=== PATIENT | female | born 1985 | race Caucasian/White ===

== ENCOUNTER 2020-06-15 11:46 | Emergency (ER) | payer BC, SELFPAY ==
[2020-06-15 11:57] VITALS: BP 199/124; PULSE 97; RESP 18; TEMP 36.6; O2SAT 98; BMI 50.6
--- NOTE | 2020-06-15 12:23 | ED_ITS ---
HPI - Allergic Reaction General Chief complaint: Allergic Reaction Stated complaint: allergic reaction Time Seen by Provider: 06/15/20 12:07 Source: patient Mode of arrival: ambulatory Limitations: no limitations History of Present Illness HPI narrative: 35-year-old female here with general body itching, cough, throat itching, facial itching x2 days. The patient tells me she started taking Macrobid on Friday for a UTI. She has never taken this before. She denies any rash, vomiting, diarrhea, abdominal cramps, shortness of breath, difficulty swallowing. MD complaint: allergic reaction Onset (ago): day(s) Exposure: medication Symptoms: itching Severity: mild Treatment prior to arrival: none Previous Allergic Reaction History: none Related Data Previous Rx's Medication Instructions Recorded prednisone 40 mg PO DAILY #8 tab 06/15/20 sulfamethoxazole-trimethoprim 1 tab PO Q12H #14 tab 06/15/20 [Bactrim DS] Allergies Allergy/AdvReac Type Severity Reaction Status Date / Time Fish Containing Products Allergy Intermediate SWELLING Unverified 02/17/20 18:02 AND SHORTNESS OF BREATH Penicillins [PENICILLINS] Allergy Intermediate VOMITING Unverified 02/17/20 18:02 shellfish derived Allergy Intermediate SWELLING Unverified 02/17/20 18:02 [SHELLFISH DERIVED] AND SHORTNESS OF BREATH cat dander [CATS] Allergy Unknown UNKNOWN Unverified 02/17/20 18:02 dog dander [DOGS] Allergy Unknown UNKNOWN Unverified 02/17/20 18:02 Rabbit [RABBITS] Allergy Unknown UNKNOWN Unverified 02/17/20 18:02 Review of Systems Review of Systems: Yes all other systems are reviewed and are negative Constitutional: Constitutional: Reports no additional constitutional complaints, Denies body ache(s), Denies chills, Denies fever(s), Denies headache(s) and Denies weakness Eyes: Eyes: Reports no additional eye complaints and Denies change in vision ENT: Reports system reviewed and no additional complaints, except as documented, Denies dizziness, Denies headache(s), Denies nasal congestion, Denies nasal discharge and Denies neck pain Cardiovascular: Cardiovascular: Reports no additional cardiovascular complaints, Denies chest pain, Denies leg edema and Denies dyspnea Respiratory: Respiratory: Reports no additional respiratory complaints, Denies cough and Denies dyspnea Gastrointestinal: Gastrointestinal: Reports no additional gastrointestinal complaints, Denies abdominal pain, Denies diarrhea, Denies nausea and Denies vomiting Genitourinary: Genitourinary: Reports no additional female genitourinary complaints and Denies urinary incontinence Musculoskeletal: Musculoskeletal: Reports no additional musculoskeletal complaints, Denies back pain, Denies arthralgias, Denies joint swelling, Denies neck pain, Denies numbness and Denies tingling Integumentary/Breasts: Skin/Breast: Reports system reviewed and no additional complaints, except as docu and Denies rash Comments: Itching Neurologic: Reports system reviewed and no additional complaints, except as documented, Denies Abnormal speech present, Denies dizziness, Denies headache(s), Denies numbness, Denies tingling and Denies weakness PMFSH Past Medical History Attestation statement: The following information was validated with the patient. Source: old records reviewed and nursing notes reviewed Medical History Asthma GERD (gastroesophageal reflux disease) HTN (hypertension) Muscle spasm Social History Social History Smoking Status: Never smoker Use of substances other than those prescribed or required for medical reasons: No Advance Directives: No Advance Directives Information Provided: No Physical Exam Vital Signs: Vital Signs: Last Vital Signs Temp 98.8 F 06/15/20 15:01 Pulse 82 06/15/20 15:01 Resp 16 06/15/20 15:01 BP 151/98 H 06/15/20 15:01 Pulse Ox 96 06/15/20 15:01 Body Mass Index 50.6 Const: General: cooperative, healthy appearing, comfortable and no acute distress Orientation/consciousness: patient oriented x3 Limitations: no limitations HENMT: Head: Yes normal to inspection Ears: hearing grossly normal bilaterally General nose exam: Normal external nose present Face and sinus: Yes normal facial exam Mouth: Normal oral and palatal mucosa present Throat: Yes posterior oropharynx normal, Yes tonsils normal and Yes uvula midline Eyes: General: appearance normal, both eyes and all related structures Pupils: Equal, round and reactive pupils present Neck: Neck: Yes normal visual inspection Chest: Chest palpation & inspection: normal inspection of the chest Resp: Effort & Inspection: normal respiratory effort Auscultation: clear to auscultation bilaterally Cardio: Rate: regular rate Rhythm: regular rhythm Peripheral pulses: Peripheral pulses 2+ throughout GI: Inspection: Yes normal to inspection Palpation (GI): Soft to palpation and nontender Auscultation: normal bowel sounds Back/Spine/Pelvis: Thoracic/Lumbar Spine: thoracic and lumbar spine normal to inspection Skin: General skin exam: no rashes or lesions noted Neuro: General: patient oriented x3, no focal motor deficits and normal sensation to monofilament Cranial nerves: Yes Equal, round and reactive pupils present Cognition (Neuro): normal cognition Speech: No Abnormal speech present Gait exam (Neuro): Normal gait present Motor exam (neuro): 5/5 motor strength present throughout Extrem: General: Yes normal to inspection Course Course Course Narrative: 35-year-old female here with generalized itching, facial itching, throat itching status post several days. Currently taking Macrobid for an UTI which is new. Arrival the patient has no angioedema or airway involvement. Clear lung sounds. Stable vital signs. Will place PIV and give steroids, Pepcid, Benadryl and reassess 1500-Patient feels much improved. Recommended stop taking Macrobid. Patient has taken Bactrim before with no problems. Prescribed this. Stable vital signs. Feeling better. Reviewed worrisome signs and symptoms and when to return to the emergency department. Comfortable discharge home. Discharge Plan Discharge Clinical Impression: Allergic reaction Qualifiers: Encounter type: initial encounter Qualified Code(s): T78.40XA - Allergy, uns pecified, initial encounter Patient Disposition: Home, Self-Care Instructions: General Allergic Reaction (ED) Additional Instructions: Start prednisone tomorrow Start antibiotic as soon as possible Prescriptions: New sulfamethoxazole-trimethoprim [Bactrim DS] 800-160 mg tablet 1 tab PO Q12H Qty: 14 RF: 0 prednisone 20 mg tablet 40 mg PO DAILY Qty: 8 RF: 0 Referrals: Damari Castañeda MD [Primary Care Provider] - 2 days Interventions: ED Discharge Assessment Last Done: 06/15/20 15:07 Discharge Date/Time: 06/15/20 15:07
[2020-06-15] MEDS: 0.9 % Sodium Chloride 1,000 ML 999 ML IV (12:58)
[2020-06-15] MEDS: Famotidine/PF 20 MG/2 ML VIAL IVPUSH (12:59)
[2020-06-15] MEDS: diphenhydrAMINE HCL 50 MG/ML VIAL 25 MG IVPUSH (12:59)
[2020-06-15] MEDS: methylPREDNISolone Sod Succ/PF 125 MG/2 ML VIAL IVPUSH (12:59)
[2020-06-15 15:01] VITALS: BP 151/98; PULSE 82; RESP 16; TEMP 37.1; O2SAT 96
== END 2020-06-15 15:07 | disposition home or self-care (01) ==
PROVIDERS: Emergency Provider Emergency Medicine Emergency Medical Services; PCP Internal Medicine
DX: L29.9 Pruritus, unspecified (principal); T37.8X5A Adverse effect of other specified systemic anti-infectives and antiparasitics, initial encounter; L23.9 Allergic contact dermatitis, unspecified cause; M79.10 Myalgia, unspecified site; R05 Cough; Y92.009 Unspecified place in unspecified non-institutional (private) residence as the place of occurrence of the external cause; Z20.822 Contact with and (suspected) exposure to COVID-19; Z79.2 Long term (current) use of antibiotics; Z79.899 Other long term (current) drug therapy
CPT/HCPCS: 96361; 96374; 96375; 99284; J1200; J2930

== ENCOUNTER 2020-09-14 12:26 | Emergency (ER) | payer BC, SELFPAY ==
--- NOTE | ~2020-09-14 | CT_ITS ---
EXAMINATION: CT ABDOMEN AND PELVIS WITHOUT CONTRAST CLINICAL INFORMATION: Reason for Exam Flank pain . COMPARISON: No pertinent prior studies are available for comparison. TECHNIQUE: Multidetector volumetric imaging was performed from the superior aspect of the liver through the pubic symphysis without contrast per renal stone protocol. Sagittal and coronal reformatted images were obtained on the technologist workstation. This CT examination was performed using dose optimization techniques as appropriate, variously including the following: *Automated exposure control *Adjustment of mA and/or kV according to patient size (this includes techniques or standardized protocols for targeted exams where dose is matched to indication/reason for exam; i.e. extremities or head) *Use of iterative reconstruction technique DLP: 1384 mGy-cm. FINDINGS: LUNG BASES: The visualized lung bases are unremarkable. LIVER, GALLBLADDER, BILIARY TREE: The non-contrast liver is normal in size, shape, and attenuation. No focal hepatic lesion or biliary ductal dilatation is present. The gallbladder is unremarkable with no evidence of radiopaque gallstones, gallbladder wall thickening, or obvious pericholecystic inflammatory changes. PANCREAS: Unremarkable. SPLEEN: Unremarkable. ADRENAL GLANDS: Unremarkable. KIDNEYS AND URETERS: The kidneys are normal in size, shape, and attenuation. No hydronephrosis, hydroureter, or calculi seen. No perinephric stranding. BLADDER: Unremarkable. GASTROINTESTINAL TRACT: The small and large bowel are unremarkable. The appendix is unremarkable. ABDOMINAL WALL: Mild diffuse anasarca LYMPHOVASCULAR STRUCTURES: Vascular calcification within the aorta iliac system. No bulky adenopathy.. PELVIC VISCERA: Unremarkable. OSSEUS STRUCTURES: Chronic bilateral pars defects at L5 with grade 1 anterolisthesis of L5 on S1 with secondary degenerative changes including loss of disc height, osteophyte formation, and endplate sclerosis. Prominent Tarlov cysts incidentally seen in the sacrum CT/CT abdomen pelvis wo con IMPRESSION: I do not appreciate any acute intra-abdominal process. Chronic appearing changes as described above..
[2020-09-14 13:04] VITALS: BP 192/123; PULSE 100; RESP 18; TEMP 536.9; TEMP 998.4; O2SAT 99; BMI 57.3
[2020-09-14 14:07] LABS: Glucose Urine UA NEG (NEG); Leukocyte Esterase Urine 1+ (NEG); Nitrite Urine NEG (NEG); UACC Culture Trigger YES; Urine Blood 3+ (NEG); Urine Ketones NEG (NEG); Urine Protein 2+ MG/DL (NEG-TRACE)
[2020-09-14 14:15] LABS: Appearance Urine HAZY; Color Urine PINK
[2020-09-14 14:36] LABS: Squamous Epithelial Cell Urine 1+ /LPF
[2020-09-14 14:37] LABS: Bacteria Urine TRACE /LPF; Mucus Urine TRACE /LPF
[2020-09-14 15:38] LABS: UPreg QC Valid YES; Urine Pregnancy NEGATIVE (NEGATIVE)
[2020-09-14] MEDS: Morphine Sulfate 4 MG/ML CARTRIDGE IVPUSH (15:43)
[2020-09-14] MEDS: ondansetron HCL 4 MG/2 ML VIAL IVPUSH (15:43)
[2020-09-14 15:46] LABS: MANUAL DIFF FLAG NO
[2020-09-14 15:47] VITALS: BP 212/128; PULSE 101; RESP 18; O2SAT 97
[2020-09-14 15:49] LABS: Basophils Absolute Auto 0.1 X10*3/uL (0.0-0.2); Basophils Percent Auto 0.5 % (0-2); Eosinophils Absolute Auto 0.3 X10*3/uL (0.0-0.4); Eosinophils Percent Auto 2.5 % (0-4); Hematocrit 41.7 % (37-47); Hemoglobin 13.7 g/dl (12.0-16.0); Imm Gran Abs Auto 0.04 X10*3/uL (0.00-0.03); Imm Gran Pct Auto 0.4 % (0.0-0.4); Lymphocytes Absolute Auto 1.8 X10*3/uL (1.2-4.9); Lymphocytes Percent Auto 17.6 % (20-40); Mean Corpuscular HGB Conc 32.9 g/dl (31.0-35.0); Mean Corpuscular Hemoglobin 27.5 pg (27.0-33.0); Mean Corpuscular Volume 83.6 fL (80-98); Mean Platelet Volume 9.4 fL (9.4-12.3); Monocytes Absolute Auto 0.8 X10*3/uL (0.1-1.2); Monocytes Percent Auto 8.1 % (2-11); Neutrophils Absolute Auto 7.1 X10*3/uL (2.0-8.3); Neutrophils Percent Auto 70.9 % (45-73); Platelet Count 346 X10*3/uL (160-400); Red Blood Count 4.99 X10*6/uL (4.20-5.50); Red Cell Distribution Width 14.4 % (11.0-16.0); White Blood Count 10.1 X10*3/uL (4.8-10.8)
--- NOTE | 2020-09-14 16:22 | ED.ABDPAIN ---
HPI - Abdominal Pain General Chief Complaint: Back Pain/Injury Stated Complaint: kidney pain Time Seen by Provider: 09/14/20 15:18 Source: patient Mode of arrival: ambulatory Limitations: no limitations History of Present Illness HPI narrative: 35-year-old female with history of hypertension, DJD of the back, obesity along with other history as noted below presenting with complaint of states 2 days of burning-like discomfort with urination but for the past several weeks has noted some blood when she voids and became burning-like today. 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 She otherwise denies any lower abdominal pain, nausea, vomiting, diarrhea, fever. MD elicited complaint: flank pain Pertinent past history: past UTI Onset (ago): day(s) Pain Consistency: intermittent Location: other (Lower back) Severity: moderate Quality: aching Radiation: none Migration to: no migration Exacerbating factors: movement Relieving factors: nothing Associated symptoms: denies other symptoms Related Data Previous Rx's Medication Instructions Recorded prednisone 40 mg PO DAILY #8 tab 06/15/20 sulfamethoxazole-trimethoprim 1 tab PO Q12H #14 tab 06/15/20 [Bactrim DS] cefdinir 300 mg PO BID #14 cap 09/14/20 naproxen 500 mg PO BID PRN #14 tab 09/14/20 Allergies Allergy/AdvReac Type Severity Reaction Status Date / Time Fish Containing Products Allergy Intermediate SWELLING Unverified 02/17/20 18:02 AND SHORTNESS OF BREATH Penicillins [PENICILLINS] Allergy Intermediate VOMITING Verified 09/14/20 13:03 shellfish derived Allergy Intermediate SWELLING Verified 09/14/20 13:03 [SHELLFISH DERIVED] AND SHORTNESS OF BREATH cat dander [CATS] Allergy Unknown UNKNOWN Verified 09/14/20 13:03 dog dander [DOGS] Allergy Unknown UNKNOWN Verified 09/14/20 13:03 Rabbit [RABBITS] Allergy Unknown UNKNOWN Verified 09/14/20 13:03 nitrofurantoin Allergy Hives Verified 09/14/20 13:03 [From Macrobid] Review of Systems Review of Systems Constitutional: No Weight loss, No Fever, No Chills, No Night Sweats, No Fatigue, No Malaise ENT/Mouth: No Hearing loss, No Ear Pain, No Nasal Congestion, No Sinus Pain, No Hoarseness, No sore throat, No Rhinorrhea, No Swallowing Difficulty Eyes: No Eye Pain, No Swelling, No Redness, No Foreign Body, No Discharge, No Vision Changes Cardiovascular: No Chest Pain, No SOB, No Dyspnea on Exertion, No Orthopnea, No Edema, No Palpitations Respiratory: No Cough, No Sputum, No Wheezing, No Dyspnea Gastrointestinal: No Nausea, No Vomiting, No Diarrhea, No Constipation, No abdominal Pain, No Hematochezia, No Melena Genitourinary: no irregular bleeding, + Dysuria, No Urinary Frequency, + Hematuria, No Urinary Incontinence, No Urgency, No Urinary Flow Changes, No Hesitancy Musculoskeletal: No joint pain, No Myalgias, No Joint Swelling, back pain Skin: No Skin Lesions, No rash Neuro: No Weakness, No Numbness, No Paresthesias, No Loss of Consciousness, No Dizziness, No Headache Psych: No Social Issues Heme/Lymph: No Bruising, No Bleeding,No Lymphadenopathy Endocrine: No Polyuria, No Polydipsia, No Temperature Intolerance Yes all other systems are reviewed and are negative Physical Exam Vital Signs: Vital Signs: Last Vital Signs Temp 998.4 F H 09/14/20 13:04 Pulse 92 09/14/20 17:29 Resp 18 09/14/20 17:29 BP 162/95 H 09/14/20 17:29 Pulse Ox 97 09/14/20 17:29 Body Mass Index 57.3 Reviewed Temperature documented as above however this is done in error the actual temperature is 98.4 degrees. Resp: Auscultation: clear to auscultation bilaterally Cardio: Rhythm: regular rhythm Heart sounds: S1 normal heart sound present and S2 normal heart sound present GI: Palpation (GI): Soft to palpation Course Reevaluation(s) Reevaluation #1: Noticeably hypertensive at baseline though in pain she was post be on antihypertensive she did not hop picker last week she picked up today did not take. States she has history of attention will normally run slightly higher. She otherwise denies any headache or chest pain. Labs show urine that is infected otherwise no leukocytosis, renal function intact. Abdominal pelvis CT without acute pathology. Exam does not exhibit any findings to suggest pyelonephritis. Will discharge home with Ceftin and culture the urine. Educated on the importance of better blood pressure management for greater than 15 minutes with counseling including importance of dietary regimen, balance sleep and desirable BMI. She will keep a log of her blood pressure and follow-up with her primary care closely. Stable for discharge. MDM - Abdominal Pain Medical Records Attestation: I reviewed the patient's medical records. Lab Data Attestation: I reviewed the patient's lab results. Result diagrams: 09/14/20 15:38 09/14/20 15:38 Labs: Lab Results 09/14/20 09/14/20 09/14/20 Range/Units 13:43 13:43 15:38 WBC 10.1 (4.8-10.8) X10*3/uL RBC 4.99 (4.20-5.50) X10*6/uL Hgb 13.7 (12.0-16.0) g/dl Hct 41.7 (37-47) % MCV 83.6 (80-98) fL MCH 27.5 (27.0-33.0) pg MCHC 32.9 (31.0-35.0) g/dl RDW 14.4 (11.0-16.0) % Plt Count 346 (160-400) X10*3/uL MPV 9.4 (9.4-12.3) fL Immature Gran % (Auto) 0.4 (0.0-0.4) % Neut % (Auto) 70.9 (45-73) % Lymph % (Auto) 17.6 L (20-40) % [place]oula % (Auto) 8.1 (2-11) % Eos % (Auto) 2.5 (0-4) % Baso % (Auto) 0.5 (0-2) % Lymph # (Auto) 1.8 (1.2-4.9) X10*3/uL [place] # (Auto) 0.8 (0.1-1.2) X10*3/uL Eos # (Auto) 0.3 (0.0-0.4) X10*3/uL Baso # (Auto) 0.1 (0.0-0.2) X10*3/uL Abs Immat Gran (auto) 0.04 H (0.00-0.03) X10*3/uL Absolute Neuts (auto) 7.1 (2.0-8.3) X10*3/uL Absolute Nucleated RBC 0.000 (0.0-0.012) X10*3/uL Nucleated RBC % (auto) 0.0 (0.0-0.2) /100WBC Sodium (135-145) mmol/L Potassium (3.3-5.1) mmol/L Chloride (96-108) mmol/L Carbon Dioxide (22-29) mmol/L Anion Gap (12-20) BUN (9-16) mg/dL Creatinine (0.5-1.4) mg/dL Estim Creat Clear Calc Estimated GFR Random Glucose (60-115) mg/dL Calcium (8.4-10.2) mg/dL Total Bilirubin (0.0-1.0) mg/dL AST (5-31) U/L ALT (0-31) U/L Alkaline Phosphatase (39-117) U/L Total Protein (6.5-8.0) g/dL Albumin (3.5-5.0) g/dL Urine Color PINK Urine Appearance HAZY Urine pH 7.0 (5.0-8.0) Ur Specific Tillson 1.010 (1.005-1.025) Urine Protein 2+ H (NEG-TRACE) MG/DL Urine Glucose (UA) NEG (NEG) MG/DL Urine Ketones NEG (NEG) MG/DL Urine Blood 3+ H (NEG) Urine Nitrite NEG (NEG) Ur Leukocyte Esterase 1+ H (NEG) Urine RBC 15-29 H (0) /HPF Urine WBC 1-4 (0-4) /HPF Ur Squamous Epith Cells 1+ /LPF Urine Bacteria TRACE /LPF Urine Mucus TRACE /LPF Urine Test NEGATIVE (NEGATIVE) 09/14/20 Range/Units 15:38 WBC (4.8-10.8) X10*3/uL RBC (4.20-5.50) X10*6/uL Hgb (12.0-16.0) g/dl Hct (37-47) % MCV (80-98) fL MCH (27.0-33.0) pg MCHC (31.0-35.0) g/dl RDW (11.0-16.0) % Plt Count (160-400) X10*3/uL MPV (9.4-12.3) fL Immature Gran % (Auto) (0.0-0.4) % Neut % (Auto) (45-73) % Lymph % (Auto) (20-40) % [place]oul[place] % (Auto) (2-11) % Eos % (Auto) (0-4) % Baso % (Auto) (0-2) % Lymph # (Auto) (1.2-4.9) X10*3/uL [place] # (Auto) (0.1-1.2) X10*3/uL Eos # (Auto) (0.0-0.4) X10*3/uL Baso # (Auto) (0.0-0.2) X10*3/uL Abs Immat Gran (auto) (0.00-0.03) X10*3/uL Absolute Neuts (auto) (2.0-8.3) X10*3/uL Absolute Nucleated RBC (0.0-0.012) X10*3/uL Nucleated RBC % (auto) (0.0-0.2) /100WBC Sodium 138 (135-145) mmol/L Potassium 3.5 (3.3-5.1) mmol/L Chloride 99 (96-108) mmol/L Carbon Dioxide 27 (22-29) mmol/L Anion Gap 16 (12-20) BUN 11 (9-16) mg/dL Creatinine 0.78 (0.5-1.4) mg/dL Estim Creat Clear Calc 148.4 Estimated GFR > 60 Random Glucose 115 (60-115) mg/dL Calcium 9.1 (8.4-10.2) mg/dL Total Bilirubin 0.6 (0.0-1.0) mg/dL AST 25 (5-31) U/L ALT 35 H (0-31) U/L Alkaline Phosphatase 73 (39-117) U/L Total Protein 8.1 H (6.5-8.0) g/dL Albumin 4.4 (3.5-5.0) g/dL Urine Color Urine Appearance Urine pH (5.0-8.0) Ur Specific Tillson (1.005-1.025) Urine Protein (NEG-TRACE) MG/DL Urine Glucose (UA) (NEG) MG/DL Urine Ketones (NEG) MG/DL Urine Blood (NEG) Urine Nitrite (NEG) Ur Leukocyte Esterase (NEG) Urine RBC (0) /HPF Urine WBC (0-4) /HPF Ur Squamous Epith Cells /LPF Urine Bacteria /LPF Urine Mucus /LPF Urine Test (NEGATIVE) Imaging Data Abdominal/pelvis CT: Radiologist's impression: [address] [id number] Scan ReportSigned Patient: Shirley SantosMR#: [id number]: [id number]:[id number]/Sex: 35 / FADM Date: 09/14/20Loc: [email or web address] Dr: Ordering Physician: Michael Phan NP Date of Service: 09/14/20 Procedure(s): CT abdomen pelvis wo con Accession Number(s): [id number] cc: Michael Phan OUTPATIENT PHYSICAL THERAPIST~ EXAMINATION: CT ABDOMEN AND PELVIS WITHOUT CONTRAST CLINICAL INFORMATION: Reason for Exam Flank pain . COMPARISON: No pertinent prior studies are available for comparison. TECHNIQUE: Multidetector volumetric imaging was performed from the superior aspect of the liver through the pubic symphysis without contrast per renal stone protocol. Sagittal and coronal reformatted images were obtained on the technologist workstation. This CT examination was performed using dose optimization techniques as appropriate, variously including the following: *Automated exposure control *Adjustment of mA and/or kV according to patient size (this includes techniques or standardized protocols for targeted exams where dose is matched to indication/reason for exam; i.e. extremities or head) *Use of iterative reconstruction technique DLP: 1384 mGy-cm. FINDINGS: LUNG BASES: The visualized lung bases are unremarkable. LIVER, GALLBLADDER, BILIARY TREE: The non-contrast liver is normal in size, shape, and attenuation. No focal hepatic lesion or biliary ductal dilatation is present. The gallbladder is unremarkable with no evidence of radiopaque gallstones, gallbladder wall thickening, or obvious pericholecystic inflammatory changes. PANCREAS: Unremarkable. SPLEEN: Unremarkable. ADRENAL GLANDS: Unremarkable. KIDNEYS AND URETERS: The kidneys are normal in size, shape, and attenuation. No hydronephrosis, hydroureter, or calculi seen. No perinephric stranding. BLADDER: Unremarkable. GASTROINTESTINAL TRACT: The small and large bowel are unremarkable. The appendix is unremarkable. ABDOMINAL WALL: Mild diffuse anasarca LYMPHOVASCULAR STRUCTURES: Vascular calcification within the aorta iliac system. No bulky adenopathy.. PELVIC VISCERA: Unremarkable. OSSEUS STRUCTURES: Chronic bilateral pars defects at L5 with grade 1 anterolisthesis of L5 on S1 with secondary degenerative changes including loss of disc height, osteophyte formation, and endplate sclerosis. Prominent Tarlov cysts incidentally seen in the sacrum CT/CT abdomen pelvis wo con IMPRESSION: I do not appreciate any acute intra-abdominal process. Chronic appearing changes as described above.. 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: [place] Discharge Plan Discharge Clinical Impression: Urinary tract infection, Back pain, Hypertension Patient Disposition: Home, Self-Care Instructions: Chronic Hypertension (ED), Acute Low Back Pain (ED), Urinary Urgency and Frequency (DC) Additional Instructions: Please take your blood pressure medication Is very important to have better control her blood pressure Having elevated blood pressure can cause serious organ damage in the long run The back pain you are having is likely from her degenerative disc disease and also from posture given that is set at a chair all day Supportive care for this, warm compresses, gentle stretching, routine exercises. Urine did show a urine tract infection for this started on antibiotic make sure you take this for the full 7 days We will send the urine out for urine culture and this helps us identify which type of bacteria is causing this urine infection and if we need to alter will call you with the results and make any changes. Please follow-up closely with her primary care doctor Thank you Prescriptions: New cefdinir 300 mg capsule 300 mg PO BID Qty: 14 RF: 0 naproxen 500 mg tablet 500 mg PO BID PRN (Reason: pain) Qty: 14 RF: 0 No Action sulfamethoxazole-trimethoprim [Bactrim DS] 800-160 mg tablet 1 tab PO Q12H Qty: 14 RF: 0 prednisone 20 mg tablet 40 mg PO DAILY Qty: 8 RF: 0 Referrals: Damari Castañeda MD [Primary Care Provider] - 3 days Discharge Date/Time: 09/14/20 18:46 [facility] Past Medical History Medical History Asthma GERD (gastroesophageal reflux disease) HTN (hypertension) Muscle spasm Social History Social History Alcohol intake: current Alcohol intake frequency: a few times a month Smoking Status: Never smoker Use of substances other than those prescribed or required for medical reasons: No Advance Directives: No Advance Directives Information Provided: No
[2020-09-14 16:29] VITALS: BP 204/106; PULSE 99; RESP 18; O2SAT 98
[2020-09-14 16:32] LABS: Alanine Aminotransferase 35 U/L (0-31); Albumin Level 4.4 g/dL (3.5-5.0); Alkaline Phosphatase 73 U/L (39-117); Anion Gap 16 (12-20); Aspartate Amino Transferase 25 U/L (5-31); Bilirubin Total 0.6 mg/dL (0.0-1.0); Blood Urea Nitrogen 11 mg/dL (9-16); Calcium 9.1 mg/dL (8.4-10.2); Carbon Dioxide 27 mmol/L (22-29); Chloride 99 mmol/L (96-108); Creatinine Clr Calc Pharmacy 148.4; Estimated Glomerular Filt Rate > 60; Glucose Random 115 mg/dL (60-115); Potassium 3.5 mmol/L (3.3-5.1); Sodium 138 mmol/L (135-145); Total Protein 8.1 g/dL (6.5-8.0)
[2020-09-14] MEDS: Labetalol HCL 100 MG/20 ML VIAL 10 MG IVPUSH (16:35)
[2020-09-14 16:44] VITALS: BP 173/98; PULSE 88; RESP 18; O2SAT 95
[2020-09-14 17:29] VITALS: BP 162/95; PULSE 92; RESP 18; O2SAT 97
== END 2020-09-14 18:46 | disposition home or self-care (01) ==
PROVIDERS: Nurse Practitioner Primary Care; Emergency Provider Internal Medicine; PCP Internal Medicine
DX: N39.0 Urinary tract infection, site not specified (principal); M54.5 Low back pain; I10 Essential (primary) hypertension; Z87.440 Personal history of urinary (tract) infections
CPT/HCPCS: 36415; 74176; 80053; 81001; 81003; 81025; 85025; 87086; 96374; 96375; 99284; 99285; J2270; J2405

== ENCOUNTER 2023-08-17 01:11 | Emergency (ER) | payer BC, SELFPAY ==
[2023-08-17 01:28] VITALS: BP 175/107; PULSE 83; RESP 20; TEMP 36.9; O2SAT 98; BMI 57.8
--- NOTE | 2023-08-17 02:46 | PC.NURSE ---
pt from home reporting high blood pressure after starting high blood pressure medications. pt reports she developed dizziness, blurriness in eyes, and flushing of the skin.
--- NOTE | 2023-08-17 04:51 | ED_ITS ---
HPI - General Adult General Chief complaint: General Medical Stated complaint: High BP Time Seen by Provider: 08/17/23 04:42 Source: patient Mode of arrival: ambulatory Limitations: no limitations History of Present Illness HPI narrative: Patient comes to the emergency room complaining of a medication side effect. Patient states that after taking atorvastatin last night for the 1st time, patient started feeling facial flushing, vision, patient check her blood pressure and it was in the 180s systolic which is unusual for her. Patient takes losartan at home but her blood pressure is never this elevated. Patient denies chest pain or shortness of breath. Patient states that she had an episode of feeling like ?the lights are on but no no one is home . Denies syncopal episode. Related Data Previous Rx's Medication Instructions Recorded prednisone 20 mg tablet 40 mg (2 x 20 mg) PO DAILY #8 tabs 06/15/20 sulfamethoxazole 800 1 tab PO Q12H #14 tabs 06/15/20 mg-trimethoprim 160 mg tablet (Bactrim DS) cefdinir 300 mg capsule 300 mg PO BID #14 caps 09/14/20 naproxen 500 mg tablet 500 mg PO BID PRN pain #14 tabs 09/14/20 Allergies Allergy/AdvReac Type Severity Reaction Status Date / Time Fish Containing Products Allergy Intermediate SWELLING Verified 08/17/23 01:28 AND SHORTNESS OF BREATH Penicillins [PENICILLINS] Allergy Intermediate VOMITING Verified 08/17/23 01:28 shellfish derived Allergy Intermediate SWELLING Verified 08/17/23 01:28 [SHELLFISH DERIVED] AND SHORTNESS OF BREATH cat dander [CATS] Allergy Unknown UNKNOWN Verified 08/17/23 01:28 dog dander [DOGS] Allergy Unknown UNKNOWN Verified 08/17/23 01:28 Rabbit [RABBITS] Allergy Unknown UNKNOWN Verified 08/17/23 01:28 nitrofurantoin Allergy Hives Verified 08/17/23 01:28 [From Macrobid] Review of Systems Review of Systems: Constitutional : No Weight loss, No Fever, No Chills, No Night Sweats, No Fatigue, No Malaise complaining of facial flushing ENT/Mouth : No Hearing loss, No Ear Pain, No Nasal Congestion, No Sinus Pain, No Hoarseness, No sore throat, No Rhinorrhea, No Swallowing Difficulty Eyes: No Eye Pain, No Swelling, No Redness, No Foreign Body, No Discharge, No Vision Changes Cardiovascular : Denies chest pain or shortness of breath, no orthopnea no palpitations Respiratory : No Cough, No Sputum, No Wheezing, No Smoke Exposure, No Dyspnea Gastrointestinal : No Nausea, No Vomiting, No Diarrhea, No Constipation, No abdominal Pain, No Hematochezia, No Melena Genitourinary : no irregular bleeding, No Dysuria, No Urinary Frequency, No Hematuria, No Urinary Incontinence, No Urgency, No Flank Pain, No Urinary Flow Changes, No Hesitancy Musculoskeletal : No joint pain, No Myalgias, No Joint Swelling Skin : No Skin Lesions, No rash Neuro : No Weakness, No Numbness, No Paresthesias, No Loss of Consciousness, No Dizziness, No Headache Psych : No Anxiety/Panic, No Depression, No SI/HI/AH/VH, No Social Issues, Heme/Lymph: No Bruising, No Bleeding,No Lymphadenopathy Endocrine : No Polyuria, No Polydipsia, No Temperature Intolerance PMFSH Past Medical History Medical History GERD (gastroesophageal reflux disease) Muscle spasm HTN (hypertension) Asthma Social History Social History Alcohol intake: current Alcohol intake frequency: a few times a month Smoked in Last 30 Days: No Use of substances other than those prescribed or required for medical reasons: No Advance Directives: No Advance Directives Information Provided: No Patient : No Physical Exam ED Vital Signs: Vital Signs - 24 hr 08/17/23 01:28 Temperature 98.4 F Pulse Rate 83 Respiratory Rate 20 Blood Pressure 175/107 H Pulse Oximetry 98 Oxygen Delivery Method Room Air BMI result Body Mass Index 57.8 Const Other: Appearance: Alert. Oriented X3. No acute distress. Eyes: Pupils equal, round and reactive to light. ENT: Pharynx normal. Neck: Normal inspection. Neck supple. No lymph nodes noted. No crepitus CVS: Normal heart rate and rhythm. Pulses normal. Normal S1 and S2 Respiratory: No respiratory distress. Breath sounds normal. No Wheezing. No rales Abdomen: Soft and nontender. No rigidity. No distention. Skin: Skin warm and dry. Normal skin color. Normal skin turgor. Extremities: No lower extremity edema. No Lacerations. No Rash Neuro: Oriented X 3. No motor deficit. No sensory deficit. Moving all extremities. No slurred speech. CN 2 through 12 grossly intact Psych: calm, cooperative, normal affect Medical Decision Making Medical Decision Making MDM Narrative: -patient states all the symptoms that she experienced today happened right after taking atorvastatin. -patient likely had a medication side effect. At this time, patient instructed to discontinue taking atorvastatin and to contact her primary care physician. -patient declined blood work and EKG because her ride is here and does not want to keep them waiting. Patient states that she will follow-up with her primary care physician. -patient's blood pressure is still elevated at 180s. Discussed with the patient that such a high blood pressure can put her risk of stroke. 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 Basically patient has a hypertensive urgency, discharge is not recommended. Patient states that she feels overall better than when she 1st came in, declined any blood work, imaging or EKG -patient states that if her right leaves, she will have no way of getting home. -I was informed by the patient's sec that the patient left without getting her discharge papers Differential Diagnosis Differential Diagnoses: The differential diagnosis associated with the presentation includes (Hypertension, medication side effect) Admission/Observation Consideration of admission/observation: Escalation of care including admission/observation considered Discharge Plan Discharge Clinical Impression: Hypertensive urgency, Side effect of medication Patient Disposition: Left W/O Completing Treatment Prescriptions: No Action sulfamethoxazole-trimethoprim [Bactrim DS] 800-160 mg tablet 1 tab PO Q12H Qty: 14 0RF prednisone 20 mg tablet 40 mg PO DAILY Qty: 8 0RF cefdinir 300 mg capsule 300 mg PO BID Qty: 14 0RF naproxen 500 mg tablet 500 mg PO BID PRN (Reason: pain) Qty: 14 0RF
[2023-08-17 04:55] VITALS: BP 185/111; PULSE 82; RESP 20; O2SAT 98
--- NOTE | 2023-08-17 05:20 | PC.NURSE ---
pt reporting she does not want to stay for treatment, provider aware.
[2023-08-17 05:30] VITALS: BP 185/111; PULSE 82; RESP 20; TEMP -17.7; TEMP 0; O2SAT 98
--- NOTE | 2023-08-18 09:26 | PC.NURSE ---
I called Shirley to follow up on her visit from yesterday. She was here with HTN. She was in a treatment space and fell asleep waiting for the doctor to come in. She had a ride coming to get her so she left before discharge. She retook her BP today while we were on the phone and it was 147/96. She denied headache. She has a warmth feeling in her face. She hasn't taken the statin since that first dose. She indicated she was calling her PCP now to get a follow up appt prior to her next visit scheduled 08/27. She was advised to follow up today on this with her PCP, a return visit to the ED or to the walk in center in [place] if she desired.
== END 2023-08-17 05:35 | disposition left against medical advice (07) ==
PROVIDERS: Emergency Provider Emergency Medicine; PCP Internal Medicine
DX: I16.0 Hypertensive urgency (principal); T46.6X5A Adverse effect of antihyperlipidemic and antiarteriosclerotic drugs, initial encounter; Y92.9 Unspecified place or not applicable; I10 Essential (primary) hypertension
CPT/HCPCS: 99283; 99284

== ENCOUNTER 2024-05-08 18:43 | Emergency (ER) | payer BC, SELFPAY ==
--- NOTE | ~2024-05-08 | XR_ITS ---
EXAMINATION: XR CHEST CLINICAL INFORMATION: SOB COMPARISON: None available. TECHNIQUE: 2 views of the chest were obtained. FINDINGS: No significant abnormality is noted involving the heart, lungs, mediastinum, bony thorax or soft tissues. XR/XR chest 2V IMPRESSION: Unremarkable examination. Electronically signed by: Hakan Gaston MD 05/08/2024 08:42 PM [facility] [place]
[2024-05-08 19:16] VITALS: BP 192/112; PULSE 82; RESP 18; TEMP 36.9; O2SAT 97; BMI 59.4
--- NOTE | 2024-05-08 19:20 | ECG_ITS ---
Test Reason : sob Blood Pressure : / mmHG Vent. Rate : 077 BPM Atrial Rate : 077 BPM P-R Int : 136 ms QRS Dur : 088 ms QT Int : 376 ms P-R-T Axes : 022 010 003 degrees QTc Int : 425 ms Normal sinus rhythm with sinus arrhythmia Normal ECG No previous ECGs available Referred By: Generic ED Physician Electronically Signed By:Juan Escoto
--- NOTE | 2024-05-08 19:21 | ED_ITS ---
HPI - SOB/Dyspnea General Chief Complaint: Dyspnea Stated Complaint: sob,lungs hurt, stuffy nose Time Seen by Provider: 05/08/24 22:19 Source: patient, RN notes reviewed and old records reviewed Mode of arrival: ambulatory Limitations: no limitations History of Present Illness ED Provider: Melissa HPI Narrative: 38-year-old female past medical history significant for asthma, obesity, diabetes, hypertension presents for evaluation of shortness of breath. Patient reports her symptoms started yesterday. She reports that she feels like she can not take a deep breath. She feels out of breath even with talking. Denies any fevers or pain She has had intermittent coughing She reports that a co-worker was diagnosed with bronchitis last week who she spent several days with She denies any recent travel. She is not on any estrogens No other complaints or concerns Related Data Previous Rx's ?Medication ?Instructions ?Recorded prednisone 20 mg tablet 40 mg (2 x 20 mg) PO DAILY #8 tabs 06/15/20 sulfamethoxazole 800 1 tab PO Q12H #14 tabs 06/15/20 mg-trimethoprim 160 mg tablet (Bactrim DS) cefdinir 300 mg capsule 300 mg PO BID #14 caps 09/14/20 naproxen 500 mg tablet 500 mg PO BID PRN pain #14 tabs 09/14/20 albuterol sulfate 90 mcg/actuation 2 puff inhalation Q4-6H PRN 05/08/24 aerosol inhaler shortness of breath or wheezing #8.5 grams azithromycin 250 mg tablet See Rx Instructions PO .COMPLEX #6 05/08/24 tabs prednisone 20 mg tablet 40 mg (2 x 20 mg) PO DAILY #10 tabs 05/08/24 Allergies Allergy/AdvReac Type Severity Reaction Status Date / Time Fish Containing Products Allergy Intermediate SWELLING Verified 05/08/24 19:19 AND SHORTNESS OF BREATH Penicillins [PENICILLINS] Allergy Intermediate VOMITING Verified 05/08/24 19:19 shellfish derived Allergy Intermediate SWELLING Verified 05/08/24 19:19 [SHELLFISH DERIVED] AND SHORTNESS OF BREATH cat dander [CATS] Allergy Unknown UNKNOWN Verified 05/08/24 19:19 dog dander [DOGS] Allergy Unknown UNKNOWN Verified 05/08/24 19:19 Rabbit [RABBITS] Allergy Unknown UNKNOWN Verified 05/08/24 19:19 nitrofurantoin Allergy Hives Verified 05/08/24 19:19 [From Macrobid] Review of Systems 2 Constitutional: Constitutional: Denies body ache(s), Denies chills, Reports fatigue, Denies fever(s) and Denies frequent falls Eyes: Eyes: Denies blurry vision ENT: Denies vertigo and Denies dizziness Cardiovascular: Cardiovascular: Denies chest pain and Reports dyspnea Respiratory: Respiratory: Reports cough, Reports pain on inspiration, Reports dyspnea and Denies wheezing Gastrointestinal: Gastrointestinal: Denies abdominal pain Musculoskeletal: Musculoskeletal: Denies back pain Integumentary/Breasts: Skin/Breast: Denies rash Neurologic: Denies vertigo, Denies dizziness and Denies frequent falls Endocrine: Endocrine: Reports fatigue Allergic/Immunologic: Allergic/Immunologic: Denies wheezing PMFSH Past Medical History Medical History GERD (gastroesophageal reflux disease) Muscle spasm HTN (hypertension) Asthma Social History Social History Alcohol intake: current Alcohol intake frequency: a few times a month Smoked in Last 30 Days: No Use of substances other than those prescribed or required for medical reasons: No Advance Directives: No Advance Directives Information Provided: No Do you have a plan to hurt others: No Plan Physical Exam 2 Vital Signs: Vital Signs: Last Vital Signs Temp 98.1 F 05/08/24 23:02 Pulse 79 05/08/24 23:02 Resp 20 05/08/24 23:02 BP 142/82 H 05/08/24 23:02 Pulse Ox 100 05/08/24 23:02 O2 Del Method Room Air 05/08/24 23:02 BMI result Body Mass Index 59.4 Const: General: healthy appearing, comfortable, no acute distress, alert and awake Nutritional Appearance: well nourished Orientation/consciousness: p atient oriented x3 HEENT: Head: Yes normocephalic and Yes atraumatic Eyes: Eyelids: Yes eyelids normal Conjunctivae: conjunctivae normal S clerae: sclerae normal Corneas: corneas normal Pupils: Equal, round and reactive pupils present EOM: EOMs intact bilaterally Neck: Neck: Yes full ROM Resp: Effort & Inspection: normal respiratory effort, able to speak in complete sentences, no audible wheezes and not labored Auscultation: clear to auscultation bilaterally Cardio: Rate: regular rate Rhythm: regular rhythm GI: Inspection: No distended Palpation (GI): Soft to palpation, not firm, nontender, no guarding and not rigid Skin: General skin exam: elasticity normal Neuro: General: patient oriented x3 Cranial nerves: Yes Equal, round and reactive pupils present and Yes Bilaterally intact EOM present Cognition (Neuro): normal cognition Course Course Course Narrative: This is a rapid medical exam. Deferred additional HPI, ROS, PE to primary provider. 38 yo female with history of asthma, HTN here with complaints of shortness of breath since yesterday. No URI symptoms, fever, chest pain, swelling or pain in your legs. Will obtain viral testing, CXR, EKG. VSS Medical Decision Making Medical Decision Making [facility] Narrative: 38-year-old female with a past medical history as documented above presents for evaluation of cough, shortness of breath. Her vital signs within normal limits, her physical exam is reassuring, lungs are clear, no lower extremity edema. She is PERC negative. Chest x-ray is without infiltrate. We will treat for acute bronchitis. Differential Diagnosis Differential Diagnoses: The differential diagnosis associated with the presentation includes Acute bronchitis Pneumonia Upper respiratory infection COVID-19 PE less likely Lab Data MDM Lab Attestation statement: I reviewed the patient's lab results. No leukocytosis or anemia. Normal platelet count. No significant electrolyte abnormalities. 05/08/24 19:37 05/08/24 19:37 Labs: Lab Results 05/08/24 Range/Units 19:37 WBC 8.9 (4.8-10.8) X10*3/uL RBC 4.41 (4.20-5.50) X10*6/uL Hgb 13.3 (12.0-16.0) g/dl Hct 37.6 (37.0-47.0) % MCV 85.3 (80.0-98.0) fL MCH 30.2 (27.0-33.0) pg MCHC 35.4 H (31.0-35.0) g/dl RDW 12.9 (11.0-16.0) % Plt Count 314 (160-400) X10*3/uL MPV 10.1 (9.4-12.3) fL Immature Gran % (Auto) 0.3 (0.0-0.4) % Neut % (Auto) 62.8 (45-73) % Lymph % (Auto) 23.7 (20-40) % [place] % (Auto) 9.6 (2-11) % Eos % (Auto) 2.7 (0-4) % Baso % (Auto) 0.9 (0-2) % Lymph # (Auto) 2.1 (1.2-4.9) X10*3/uL [place] # (Auto) 0.9 (0.1-1.2) X10*3/uL Eos # (Auto) 0.2 (0.0-0.4) X10*3/uL Baso # (Auto) 0.1 (0.0-0.2) X10*3/uL Abs Immat Gran (auto) 0.03 (0.00-0.03) X10*3/uL Absolute Neuts (auto) 5.6 (2.0-8.3) x10*3/uL Absolute Nucleated RBC 0.000 (0.0-0.012) X10*3/uL Nucleated RBC % (auto) 0.0 (0.0-0.2) /100WBC Sodium 138 (135-145) mmol/L Potassium 3.7 (3.3-5.1) mmol/L Chloride 109 H (96-108) mmol/L Carbon Dioxide 21 L (22-29) mmol/L Anion Gap 12 (12-20) BUN 15 (9-16) mg/dL Creatinine 0.87 (0.5-1.4) mg/dL Estim Creat Clear Calc 132.3 Estimated GFR > 60 Random Glucose 128 H (60-115) mg/dL Calcium 9.5 (8.4-10.2) mg/dL Total Bilirubin 0.2 (0.0-1.0) mg/dL AST 21 (5-31) U/L ALT 24 (0-31) U/L Alkaline Phosphatase 74 (39-117) U/L Total Protein 7.4 (6.5-8.0) g/dL Albumin 4.0 (3.5-5.0) g/dL Influenza Type A (PCR) NEGATIVE (Negative) Influenza Type B (PCR) NEGATIVE (Negative) RSV RNA Qual (PCR) NEGATIVE (Negative) SARS-CoV-2 RNA (RT-PCR) NEGATIVE (Negative) Independent Interpretation I performed an independent interpretation of an: Plain X-Ray (No focal consolidations) Radiology Impression Discussion of test interpretation with radiology: I have reviewed the radiologist's reading. Radiologist Impression: FINDINGS: No significant abnormality is noted involving the heart, lungs, mediastinum, bony thorax or soft tissues. XR/XR chest 2V IMPRESSION: Unremarkable examination. Electronically signed by: Hakan Gaston MD 05/08/2024 08:42 PM [facility] Discharge Plan Discharge Clinical Impression: Bronchitis Patient Disposition: Home, Self-Care Instructions: Acute Bronchitis (ED) Additional Instructions: Your workup in the ER today was reassuring. Your blood pressure was elevated but this improved without any intervention. Take azithromycin and prednisone as prescribed for bronchitis. Use the albuterol inhaler as needed Follow-up with your primary doctor, return for new or worsening symptoms Prescriptions: New azithromycin 250 mg tablet See Rx Instructions .ROUTE .COMPLEX Qty: 6 0RF Rx Instructions: For 250 mg dose pack: take 500 mg today (day 1), then 250 mg for 4 days (days 2-5) prednisone 20 mg tablet 40 mg PO DAILY Qty: 10 0RF albuterol sulfate 90 mcg/actuation HFA aerosol inhaler 2 puff inhalation Q4-6H PRN (Reason: shortness of breath or wheezing) Qty: 8.5 0RF No Action sulfamethoxazole-trimethoprim [Bactrim DS] 800-160 mg tablet 1 tab PO Q12H Qty: 14 0RF prednisone 20 mg tablet 40 mg PO DAILY Qty: 8 0RF cefdinir 300 mg capsule 300 mg PO BID Qty: 14 0RF naproxen 500 mg tablet 500 mg PO BID PRN (Reason: pain) Qty: 14 0RF Stand Alone Forms: Work/School Release Interventions: ED Discharge Assessment Last Done: 05/08/24 23:02 Discharge Date/Time: 05/08/24 23:04 Print Language: Swiss
[2024-05-08 19:42] LABS: MANUAL DIFF FLAG NO
[2024-05-08 19:43] LABS: Basophils Absolute Auto 0.1 X10*3/uL (0.0-0.2); Basophils Percent Auto 0.9 % (0-2); Eosinophils Absolute Auto 0.2 X10*3/uL (0.0-0.4); Eosinophils Percent Auto 2.7 % (0-4); Hematocrit 37.6 % (37.0-47.0); Hemoglobin 13.3 g/dl (12.0-16.0); Imm Gran Abs Auto 0.03 X10*3/uL (0.00-0.03); Imm Gran Pct Auto 0.3 % (0.0-0.4); Lymphocytes Absolute Auto 2.1 X10*3/uL (1.2-4.9); Lymphocytes Percent Auto 23.7 % (20-40); Mean Corpuscular HGB Conc 35.4 g/dl (31.0-35.0); Mean Corpuscular Hemoglobin 30.2 pg (27.0-33.0); Mean Corpuscular Volume 85.3 fL (80.0-98.0); Mean Platelet Volume 10.1 fL (9.4-12.3); Monocytes Absolute Auto 0.9 X10*3/uL (0.1-1.2); Monocytes Percent Auto 9.6 % (2-11); Neutrophils Absolute Auto 5.6 x10*3/uL (2.0-8.3); Neutrophils Percent Auto 62.8 % (45-73); Platelet Count 314 X10*3/uL (160-400); Red Blood Count 4.41 X10*6/uL (4.20-5.50); Red Cell Distribution Width 12.9 % (11.0-16.0); White Blood Count 8.9 X10*3/uL (4.8-10.8)
[2024-05-08 20:15] LABS: Alanine Aminotransferase 24 U/L (0-31); Alkaline Phosphatase 74 U/L (39-117); Anion Gap 12 (12-20); Aspartate Amino Transferase 21 U/L (5-31); Bilirubin Total 0.2 mg/dL (0.0-1.0); Blood Urea Nitrogen 15 mg/dL (9-16); Calcium 9.5 mg/dL (8.4-10.2); Carbon Dioxide 21 mmol/L (22-29); Chloride 109 mmol/L (96-108); Creatinine Clr Calc Pharmacy 132.3; Estimated Glomerular Filt Rate > 60; Glucose Random 128 mg/dL (60-115); Potassium 3.7 mmol/L (3.3-5.1); Sodium 138 mmol/L (135-145); Total Protein 7.4 g/dL (6.5-8.0)
[2024-05-08 20:58] LABS: Influenza A PCR NEGATIVE (Negative); Influenza B PCR NEGATIVE (Negative); Resp Syncy Virus RNA Qual PCR NEGATIVE (Negative); SARS COV2 PCR INHOUSE NEGATIVE (Negative)
[2024-05-08 21:49] VITALS: BP 142/82; PULSE 79; RESP 24; TEMP 36.7; O2SAT 100
[2024-05-08 23:02] VITALS: BP 142/82; PULSE 79; RESP 20; TEMP 36.7; O2SAT 100
== END 2024-05-08 23:04 | disposition home or self-care (01) ==
PROVIDERS: Nurse Practitioner Family; Emergency Provider Emergency Medicine; PCP Physician Assistant
DX: J40 Bronchitis, not specified as acute or chronic (principal); R06.02 Shortness of breath; Z03.818 Encounter for observation for suspected exposure to other biological agents ruled out; E11.9 Type 2 diabetes mellitus without complications; I10 Essential (primary) hypertension; R05.9 Cough, unspecified
CPT/HCPCS: 0241U; 36415; 71046; 80053; 85025; 93005; 99283; 99284

== ENCOUNTER → 2024-05-08 19:20 | Outpatient (BNV) | payer BC, SELFPAY | PROVIDERS: Emergency Provider Emergency Medicine; PCP Physician Assistant; Visit Provider Internal Medicine Cardiovascular Disease | DX: I49.9 Cardiac arrhythmia, unspecified (principal) | CPT/HCPCS: 93010 ==